=== PATIENT | female | born 1995 | race Two or more races ===

== ENCOUNTER 2017-01-05 15:00 | Emergency (ER) | payer SELFPAY ==
[~2017-01-05] VITALS: Ht 152.4 cm; Wt 43.6 kg
--- NOTE | 2017-01-05 16:10 | PHYS DOC ---
Adult General Chief Complaint Chief Complaint: VOMITING IN HPI HPI Patient is a 21 year old female who presents with in the last 2 weeks. She states she's been thrown up 6-8 times daily. She denies any blood in her vomit she denies abdominal pain. She states for some she's been she found out about 6 weeks ago she did home test. She did start herself on vitamins but has not unable to find an [employer] as of yet. She denies any other past medical history. She denies taking anything to help prevent her nausea. She was seen by clinic earlier told her to push fluids. She denies fevers chills, vaginal bleeding or dysuria. Review of Systems Review of Systems Constitutional: Denies fever or chills [] Eyes: Denies change in visual acuity, redness, or eye pain [] HENT: Denies nasal congestion or sore throat [] Respiratory: Denies cough or shortness of breath [] Cardiovascular: No additional information not addressed in HPI [] GI: Denies abdominal pain, nausea, vomiting, bloody stools or diarrhea [] : Denies dysuria or hematuria [] Musculoskeletal: Denies back pain or joint pain [] Integument: Denies rash or skin lesions [] Neurologic: Denies headache, focal weakness or sensory changes [] Endocrine: Denies polyuria or polydipsia [] Current Medications Current Medications Current Medications Medications (Trade) Dose Ordered Sig/[facility] Start Time Stop Time Status Last Admin Dose Admin Ondansetron HCl (Zofran) 4 mg 1X ONCE 01/05/17 16:30 01/05/17 16:33 DC 01/05/17 17:27 4 MG Sodium Chloride 1,000 ml @ 1,000 mls/hr 1X ONCE 01/05/17 17:45 01/05/17 18:44 Allergies Allergies Allergies Coded Allergies Type Severity Reaction Last Updated Verified No Known Drug Allergies 01/05/17 No Physical Exam Physical Exam Constitutional: Well developed, well nourished, no acute distress, non-toxic appearance. [] HENT: Normocephalic, atraumatic, bilateral external ears normal, oropharynx moist, no oral exudates, nose normal. [] Eyes: PERRLA, EOMI, conjunctiva normal, no discharge. [] Neck: Normal range of motion, no tenderness, supple, no stridor. [] Cardiovascular:Heart rate regular rhythm, no murmur [] Lungs & Thorax: Bilateral breath sounds clear to auscultation [] Abdomen: Bowel sounds normal, soft, no tenderness, no masses, no pulsatile masses. [] Skin: Warm, dry, no erythema, no rash. [] Back: No tenderness, no CVA tenderness. [] Extremities: No tenderness, no cyanosis, no clubbing, ROM intact, no edema. [] Neurologic: Alert and oriented X 3, normal motor function, normal sensory function, no focal deficits noted. [] Psychologic: Affect normal, judgement normal, mood normal. [] Current Patient Data Vital Signs Vital Signs Date Time Temp Pulse Resp B/P (MAP) Pulse Ox O2 Delivery O2 Flow Rate FiO2 01/05/17 16:25 98.6 93 16 106/60 (75) 97 Room Air 98.6 Lab Values Laboratory Tests Test 01/05/17 16:19 01/05/17 16:21 01/05/17 16:25 POC Urine HCG, Qualitative Hcg positive (Negative) Urine Collection Type Unknown Urine Color Veronika Urine Clarity Cloudy Urine pH 6.0 Urine Specific Deweese >=1.030 Urine Protein 100 mg/dL (NEG-TRACE) Urine Glucose (UA) Negative mg/dL (NEG) Urine Ketones (Stick) >=80 mg/dL (NEG) Urine Blood Negative (NEG) Urine Nitrite Negative (NEG) Urine Bilirubin Negative (NEG) Urine Urobilinogen Dipstick 1.0 mg/dL (0.2 mg/dL) Urine Leukocyte Esterase Moderate (NEG) Urine RBC 0 /HPF (0-2) Urine WBC 11-20 /HPF (0-4) Urine Squamous Epithelial Cells Many /LPF Urine Bacteria Moderate /HPF (0-FEW) Urine Mucus Marked /LPF White Blood Count 9.5 x10^3/uL (4.0-11.0) Red Blood Count 4.15 x10^6/uL (3.50-5.40) Hemoglobin 12.9 g/dL (12.0-15.5) Hematocrit 38.2 % (36.0-47.0) Mean Corpuscular Volume 92 fL (79-100) Mean Corpuscular Hemoglobin 31 pg (25-35) Mean Corpuscular Hemoglobin Concent 34 g/dL (31-37) Red Cell Distribution Width 11.9 % (11.5-14.5) Platelet Count 213 x10^3/uL (140-400) Neutrophils (%) (Auto) 70 % (31-73) Lymphocytes (%) (Auto) 22 % (24-48) L Monocytes (%) (Auto) 7 % (0-9) Eosinophils (%) (Auto) 0 % (0-3) Basophils (%) (Auto) 0 % (0-3) Neutrophils # (Auto) 6.7 x10^3uL (1.8-7.7) Lymphocytes # (Auto) 2.1 x10^3/uL (1.0-4.8) Monocytes # (Auto) 0.7 x10^3/uL (0.0-1.1) Eosinophils # (Auto) 0.0 x10^3/uL (0.0-0.7) Basophils # (Auto) 0.0 x10^3/uL (0.0-0.2) Urine Test Positive (NEG) Sodium Level 137 mmol/L (136-145) Potassium Level 3.8 mmol/L (3.5-5.1) Chloride Level 101 mmol/L (98-107) Carbon Dioxide Level 27 mmol/L (21-32) Anion Gap 9 (6-14) Blood Urea Nitrogen 8 mg/dL (7-20) Creatinine 0.4 mg/dL (0.6-1.0) L Estimated GFR (Cockcroft-Gault) 203.5 Glucose Level 104 mg/dL (70-99) H Calcium Level 9.4 mg/dL (8.5-10.1) Total Bilirubin 0.5 mg/dL (0.2-1.0) Direct Bilirubin 0.1 mg/dL (0.0-0.2) Aspartate Amino Transferase (AST) 20 U/L (15-37) Alanine Aminotransferase (ALT) 41 U/L (14-59) Alkaline Phosphatase 48 U/L (46-116) Total Protein 7.9 g/dL (6.4-8.2) Albumin 4.0 g/dL (3.4-5.0) Laboratory Tests 01/05/17 16:25 Laboratory Tests 01/05/17 16:25 EKG EKG [] Radiology/Procedures Radiology/Procedures [] Impressions: Dehydration Nausea vomiting in UTI in Course & Med Decision Making Course & Med Decision Making Pertinent Labs and Imaging studies reviewed. (See chart for details) Patient has greater than 80 ketones in her urine. She also has some bacteriuria however I suspect is secondary to contamination. She received 2 L of normal saline in addition to Zofran. She being discharged home and instructed to follow -up with Dr. Singh. She has not established care as of yet. She's being discharged with Zofran and nitrofurantoin. Return precautions given. She is agreeable plan is in stable condition at this time. Dragon Disclaimer Dragon Disclaimer This electronic medical record was generated, in whole or in part, using a voice recognition dictation system. Departure Departure Impression: Primary Impression: UTI in Disposition: HOME, SELF-CARE Condition: STABLE Patient Instructions: Nausea and Vomiting, [id number] Additional Instructions: You are dehydrated from your nausea and vomiting. Your being discharged home and you need to push fluids. You can take Zofran as needed and as directed. You will also need to take nitrofurantoin, which is an antibiotic for a bladder infection. Please call and schedule a follow-up appointment. You can take [id number] vitamin B6 (Pyridoxine) 75 mg daily for nausea. Return ER for her black stools, vomiting blood, abdominal pain, or other concerns. Scripts Nitrofurantoin Monohyd/M-Cryst (MACROBID 100 MG CAPSULE) 100 Mg Capsule 1 CAP PO BID, #14 CAP Prov: TITI FISHER MD 01/05/17 Ondansetron (ZOFRAN ODT) 4 Mg Tab.rapdis 1 TAB SL Q8HRS Y for NAUSEA, #10 TAB Prov: TITI FISHER MD 01/05/17 Problem Qualifiers Primary Impression: UTI in Trimester: first trimester Qualified Codes: O23.41 - Unspecified infection of urinary tract in , first trimester TITI FISHER MD Jan 05, 2017 16:10
[2017-01-05] MEDS ORDERED: ONDANSETRON PF 4 MG/2 ML VIAL. IV ONE (16:30)
[2017-01-05] MEDS ORDERED: IV NORMAL SALINE 1000ML BAG 1,000 ML IV ONE ×2 (16:30→17:45)
[2017-01-05 16:35] LABS: BILIRUBIN,URINE NEGATIVE (NEG); GLUCOSE,URINE NEGATIVE (NEG); NITRITE,URINE NEGATIVE (NEG); PROTEIN,URINE 100 mg/dL (NEG-TRACE)
[2017-01-05 16:46] LABS: BACTERIA,URINE MODERATE /HPF (0-FEW); RBC,URINE 0 /HPF (0-2); SQUAMOUS EPITHELIAL CELL,UR MANY /LPF
[2017-01-05 16:53] LABS: BASO % 0 % (0-3); EOS % 0 % (0-3); HEMATOCRIT 38.2 % (36.0-47.0); HEMOGLOBIN 12.9 g/dL (12.0-15.5); LYMPH # 2.1 x10^3/uL (1.0-4.8); LYMPH % 22 % (24-48); MEAN CORPUSCULAR HEMOGLOBIN 31 pg (25-35); MEAN CORPUSCULAR HGB CONC 34 g/dL (31-37); MEAN CORPUSCULAR VOLUME 92 fL (79-100); MONO % 7 % (0-9); NEUT % 70 % (31-73); PLATELET COUNT 213 x10^3/uL (140-400); RED BLOOD COUNT 4.15 x10^6/uL (3.50-5.40); RED CELL DISTRIBUTION WIDTH 11.9 % (11.5-14.5); WHITE BLOOD COUNT 9.5 x10^3/uL (4.0-11.0)
[2017-01-05 16:56] LABS: NEG OBC UR NEG; POS OBC UR POS
[2017-01-05 17:12] LABS: CALCIUM 9.4 mg/dL (8.5-10.1); CREATININE 0.4 mg/dL (0.6-1.0); GFR 203.5; POTASSIUM 3.8 mmol/L (3.5-5.1)
[2017-01-05 17:18] LABS: DIRECT BILIRUBIN 0.1 mg/dL (0.0-0.2); TOTAL BILIRUBIN 0.5 mg/dL (0.2-1.0); TOTAL PROTEIN 7.9 g/dL (6.4-8.2)
[2017-01-05] MEDS ORDERED: NITR100C62 PO (18:36)
[2017-01-05] MEDS ORDERED: ONDA4TAB10 SL (18:36)
[2017-01-05 18:49] VITALS: BP 101/61
== END 2017-01-05 19:19 | disposition home or self-care (01) ==
LOC: ER 15:00 → EDBD 15:00 → ER 19:19
DX: O23.41 Unspecified infection of urinary tract in pregnancy, first trimester (principal); E86.0 Dehydration
CPT/HCPCS: 36415; 80048; 80076; 81001; 81025; 84703; 85025; 87086; 96361; 96374; 99285; J2405; J7030

== ENCOUNTER 2017-08-13 00:18 | Observation (INO) | payer SELFPAY ==
[2017-08-13] MEDS ORDERED: IV RINGERS,LACTATED 1000ML 1,000 ML IV (00:30)
[2017-08-13 02:06] LABS: BILIRUBIN,URINE NEGATIVE (NEG); CLARITY,URINE CLEAR; COLOR,URINE YELLOW; GLUCOSE,URINE NEGATIVE (NEG); NITRITE,URINE NEGATIVE (NEG); PH,URINE 6.5; PROTEIN,URINE NEGATIVE (NEG-TRACE); UROBILINOGEN,URINE 0.2 mg/dL (0.2 mg/dL)
[2017-08-13 02:29] LABS: BACTERIA,URINE MODERATE /HPF (0-FEW); SQUAMOUS EPITHELIAL CELL,UR FEW /LPF; WBC,URINE >40 /HPF (0-4)
== END 2017-08-13 02:00 | disposition home or self-care (01) ==
LOC: 3 SO LND 00:18
DX: O62.9 Abnormality of forces of labor, unspecified (principal); O48.1 Prolonged pregnancy; Z3A.40 40 weeks gestation of pregnancy
CPT/HCPCS: 81001; 87086; G0378; G0379